=== PATIENT | male | born 1980 | race Caucasian/White ===

== ENCOUNTER 2016-08-22 10:17 | Emergency (ER) | payer BC ==
[~2016-08-22] VITALS: Ht 175.3 cm; Wt 124.7 kg
[~2016-08-22 10:17] MED LIST: AMOX500C2 PO; CLON0.5T PO; DABI150C PO; HYDR-3812 PO; HYDR-757 PO; IBUP200T48 PO; LORA-405 PO; PENI500T PO; SERT100T PO; SERT50TA PO; TRAM50TA2 PO
--- NOTE | 2016-08-22 10:30 | ED Lower Extremity ---
General Chief Complaint: Lower Extremity Stated Complaint: FOOT INJURY Source: patient Exam Limitations: no limitations History of Present Illness Time seen by provider: 10:29 Initial Comments To ER with left lateral foot pain since 08/19. He has a history of a Blanco fracture to this foot about 8 months ago. On 08/19/16 was walking through his house and had a recurrence of the pain. He denies stepping on anything, twisting his foot or any other known injury. Foot has been painful with walking Onset: last week Severity: moderate Pain/Injury Location: left foot Modifying Factors: Worse With Movement Allergies and Home Medications Allergies Coded Allergies: No Known Drug Allergies (Unverified , 01/14/16) Home Medications Clonazepam 0.5 Mg Tablet, 0.5 MG PO BID, (Reported) Dabigatran Etexilate Mesylate 150 Mg Capsule, 150 MG PO BID, #60 Prescribed by: DAMIEN LOJA on 04/01/14 1148 Hydrocodone/Acetaminophen 1 Each Tablet, 1 EACH PO Q4H PRN for PAIN, #20 Prescribed by: BARRY ENCINAS on 01/14/162011 Hydrocodone/Acetaminophen 1 Each Tablet, 1 EACH PO Q4H PRN for PAIN-MODERATE, # 20 Prescribed by: BARRY ENCINAS on 08/22/16 1047 Sertraline HCl 100 Mg Tablet, 150 MG PO HS, (Reported) Constitutional: see HPI EENTM: see HPI Respiratory: no symptoms reported Cardiovascular: no symptoms reported Genitourinary: no symptoms reported Musculoskeletal: see HPI Skin: no symptoms reported Psychiatric/Neurological: No Symptoms Reported Past Sumsymb-Fgprnm-Pzfoan Hx Patient Social History Recent Foreign Travel: No Contact w/Someone Who Travel: No Recent Hopitalizations: No Immunizations Up To Date Tetanus Booster (TDap): Less than 5yrs PED Vaccines UTD: Yes Seasonal Allergies Seasonal Allergies: Yes Surgeries HX Surgeries: Yes (undescended testicle) Surgeries: Adenoidectomy, Tonsillectomy Respiratory Hx Respiratory Disorders: Yes (PE approximately in 2014) Respiratory Disorders: Pulmonary Embolism Cardiovascular Hx Cardiac Disorders: No Cardiac Disorders: Deep Vein Thrombosis Neurological Hx Neurological Disorders: No Reproductive System Hx Reproductive Disorders: No Sexually Transmitted Disease: No HIV/AIDS: No Genitourinary Hx Genitourinary Disorders: Yes (undescended testicle surgically corrected) Gastrointestinal Hx Gastrointestinal Disorders: No Musculoskeletal Hx Musculoskeletal Disorders: No Endocrine Hx Endocrine Disorders: No HEENT HX ENT Disorders: No Loss of Vision: Denies Hearing Impairment: Denies Cancer Hx Cancer: No Psychosocial Hx Psychiatric Problems: Yes Behavioral Health Disorders: Anxiety Integumentary HX Skin/Integumentary Disorder: No Blood Transfusions Hx Blood Disorders: No Adverse Reaction to a Blood Tr: No Family Medical History Family Medial History: Arthritis G8 SISTER, Onset:Unknown Cardiovascular disease 19 FATHER, Onset:Unknown Diabetes mellitus 19 FATHER, Onset:Unknown Physical Exam Vital Signs Vital Sign - Last 12Hours 08/22/16 10:25 Temp 98.2 Pulse 75 Resp 18 B/P (MAP) 136/72 Pulse Ox 95 Capillary Refill : General Appearance: WD/WN, no apparent distress HEENT: PERRL/EOMI, normal ENT inspection Neck: non-tender, full range of motion Respiratory: no respiratory distress, no accessory muscle use Hips: bilateral hip non-tender, bilateral hip normal inspection, bilateral hip normal range of motion Legs: bilateral leg non-tender, bilateral leg normal inspection, bilateral leg normal range of motion Knees: bilateral knee non-tender, bilateral knee normal inspection, bilateral knee normal range of motion Ankles: bilateral ankle non-tender, bilateral ankle normal inspection, bilateral ankle normal range of motion Feet: left foot pain, left foot soft tissue tenderness (over the plantar and dorsal aspect of the foot near the proximal fifth metatarsal) Neurologic/Tendon: normal sensation, normal motor functions, normal tendon functions Neurologic/Psychiatric: alert, normal mood/affect, oriented x 3 Skin: normal color, warm/dry Progress/Results/Core Measures Results/Orders My Orders Orders - BARRY ENCINAS APRN Foot, Left, 3 Views (08/22/16 10:28) Vital Signs/I&O Vital Sign - Last 12Hours 08/22/16 10:25 Temp 98.2 Pulse 75 Resp 18 B/P (MAP) 136/72 Pulse Ox 95 Departure Impression Impression: Primary Impression: 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 Decision time for Depature: 10:45 Referrals: FELIZ BOYD MD,DAMIEN TERESA DPM, DO (PCP/Family) Primary Care Physician SON BRIDGES MD,GAETANO REYES MD, MICHAEL P MD Patient Instructions: Foot Fracture (DC) Add. Discharge Instructions: 1. Wear the boot as directed 2. Follow-up with orthopedic surgeon of your choosing as this may require surgical fixation 3. All discharge instructions reviewed with patient and/or family. Voiced understanding. Scripts Hydrocodone/Acetaminophen ([place] 5-325 Tablet) 1 Each Tablet 1 EACH PO Q4H Y for PAIN-MODERATE, #20 TAB Prov: BARRY ENCINAS [employer]PUTER NETWORK ENGINEER 08/22/16 Copy Copies To 1: DAMIEN LOJA DO Copies To 2: GAETANO WEEKS PETER J APRN August 22, 2016 10:30
[2016-08-22] MEDS ORDERED: HYDR-757 PO (10:47)
[2016-08-22 11:01] VITALS: BP 136/72
--- NOTE | 2016-08-22 11:26 | Diagnostic Imaging Report ---
EXAMINATION: 3 views of the left foot. INDICATION: Pain and patient felt a pop while walking at the same location of the prior Blanco fracture in the proximal fifth metatarsal. COMPARISON: 01/14/16. FINDINGS: When compared to 01/14/16, there is suggestion of osseous bridging seen along the medial aspect of the fracture line in the proximal 5th metatarsal. The lateral aspect of the fracture line demonstrate ununited sclerotic margins. There is no acute fracture seen. No subluxation or dislocation. IMPRESSION: There is healing and osseous bridging along the medial aspect of the fracture line in the proximal fifth metatarsal. No acute fracture is seen. Dictated by: Dictated on workstation # [id number]
== END 2016-08-22 11:01 | disposition home or self-care (01) ==
LOC: EDUNIT# 10:17 → ER 10:20
DX: S92.355G Nondisplaced fracture of fifth metatarsal bone, left foot, subsequent encounter for fracture with delayed healing (principal); X58.XXXD Exposure to other specified factors, subsequent encounter; Y99.8 Other external cause status
CPT/HCPCS: 73630; 99283